=== PATIENT | female | born 1970 | race Two or more races ===

== ENCOUNTER 2022-10-16 00:44 | Inpatient (IN) | payer MEDICAID ==
[~2022-10-16] VITALS: Ht 152.4 cm; Wt 72.6 kg
[2022-10-16 00:54] VITALS: BP 176/61
[2022-10-16 01:21] LABS: Basophils # (auto) 0.1 10 ^3/uL (0-0.2); Eosinophils # (auto) 0.2 10 ^3/uL (0-0.8); Eosinophils % (auto) 2.9 % (0.0-7.0); Hematocrit 43.2 % (36.0-46.0); Hemoglobin 13.8 g/dL (12.2-16.2); Lymphocytes # (auto) 2.5 10 ^3/uL (0.4-5.4); Lymphocytes % (auto) 47.1 % (10.0-50.0); Mean Corpuscular Hgb Conc. 31.8 g/dL (32.0-36.0); Mean Corpuscular Volume 91.2 fL (80.0-100.0); Monocytes # (auto) 0.3 10 ^3/uL (0-1.3); Monocytes % (auto) 5.9 % (0.0-12.0); Neutrophils # (auto) 2.3 10 ^3/uL (1.6-8.6); Neutrophils % (auto) 43.1 % (37.0-80.0); Nucleated Red Blood Cells % 0.1 %; Red Blood Cells 4.74 10^6/uL (4.0-5.20); Red Cell Distribution Width 14.2 % (11.8-14.3); White Blood Cell 5.3 10^3/uL (4.4-10.8)
[2022-10-16 01:27] LABS: INR 0.92 (0.9-1.15); Partial Thromboplastin Time 24.8 sec (24.6-33.4)
[2022-10-16 01:31] LABS: Albumin 4.1 g/dL (3.4-5.0); BUN/Creatinine Ratio 30.6; Calcium 9.1 mg/dL (8.5-10.1); Magnesium 2.3 mg/dL (1.6-2.6); Potassium 3.6 mmol/L (3.5-5.1)
[2022-10-16 01:34] LABS: Bilirubin, Total 0.2 mg/dL (0.2-1.0); Total Protein 7.5 g/dL (6.4-8.2)
[2022-10-16] MEDS ORDERED: TEMAZEPAM 15 MG CAP PO PRN (05:00)
[2022-10-16] MEDS ORDERED: ACETAMINOPHEN 325 MG TAB PO PRN (05:00)
[2022-10-16] MEDS ORDERED: ONDANSETRON HCL 4 MG/2 ML VIAL IV PRN (05:00)
[2022-10-16] MEDS ORDERED: MORPHINE SULFATE INJ 2 MG/ml SYRG IV PRN (05:00)
[2022-10-16] MEDS ORDERED: NITROGLYCERIN 0.4 MG SL TAB SL PRN (05:00)
[2022-10-16] MEDS ORDERED: PANTOPRAZOLE 40 MG TAB PO SCH (10:00)
[2022-10-16] MEDS ORDERED: ENOXAPARIN SOD 40 MG/0.4 ML SYRINGE SC SCH (10:00)
[2022-10-16] MEDS ORDERED: LISINOPRIL 10 MG TAB PO SCH (10:00)
[2022-10-16] MEDS ORDERED: ASPirin 81 mg TAB PO SCH (10:00)
[2022-10-16] MEDS ORDERED: ATORVASTATIN 20 MG TAB PO SCH (22:00)
== END 2022-10-16 07:00 | disposition left against medical advice (07) | DRG 198 ==
LOC: ER 00:44 → EDBD 00:44 → TELE 04:58
PROVIDERS: ADMIT Nurse Practitioner; ATTEND Nurse Practitioner
DX: I24.9 Acute ischemic heart disease, unspecified (principal); E86.0 Dehydration; Z53.21 Procedure and treatment not carried out due to patient leaving prior to being seen by health care provider; I10 Essential (primary) hypertension; Z86.73 Personal history of transient ischemic attack (TIA), and cerebral infarction without residual deficits; R73.9 Hyperglycemia, unspecified; R07.9 Chest pain, unspecified
CPT/HCPCS: 36415; 70450; 71045; 80053; 83735; 83880; 84484; 85025; 85610; 85730; 93005; G0378

== ENCOUNTER 2025-09-07 19:50 | Emergency (ER) | payer MEDICAID ==
[~2025-09-07] VITALS: Ht 157.5 cm; Wt 68.0 kg
--- NOTE | 2025-09-07 20:00 | ECG ---
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
--- NOTE | 2025-09-07 21:07 | ECG ---
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
[2025-09-07 22:00] LABS: Hematocrit 41.7 % (36.0-46.0); Hemoglobin 13.9 g/dL (12.2-16.2); Mean Corpuscular Hemoglobin 30.2 pg (28.0-32.0); Mean Corpuscular Volume 90.5 fL (80.0-100.0); Nucleated Red Blood Cells % 0.1 %; Potassium 3.7 mmol/L (3.5-5.1); Sodium 143 mmol/L (136-145)
[2025-09-07 22:01] LABS: Anion Gap 12 (5-15); Carbon Dioxide 24 mmol/L (20-31)
[2025-09-07 22:02] LABS: Calcium 9.3 mg/dL (8.7-10.4)
[2025-09-07 22:06] LABS: Glucose 100 mg/dL (74-106)
[2025-09-07 22:07] LABS: BUN/Creatinine Ratio 10.2 (10.0-20.0)
[2025-09-07] MEDS: SODIUM CHLORIDE 0.9% 1,000 ML IV ONE (22:12)
[2025-09-07 22:15] LABS: Blood Urea Nitrogen 9 mg/dL (9-23); Chloride 107 mmol/L (98-107)
[2025-09-08] MEDS: ACETAMINOPHEN 500 MG TAB or CAP PO ONE (01:07)
--- NOTE | 2025-09-08 01:19 | DVH ---
EXAM: CT HEAD WITHOUT CONTRAST INDICATION: Dizziness, fall, head injury TECHNIQUE: CT of the head without intravenous contrast. Radiation Dose : 1. Head: CT Dose: CTDI volume is 57.24 mGy. Dose-length product is 1013.6 mGy*cm The dose indicators for CT are the volume Computed Tomography (CT) Dose Index (CTDIvol) and the Dose Length Product (DLP), and are measured in units of mGy and mGy-cm, respectively. These indicators are not patient dose, but values generated from the CT scanner acquisition factors. The report includes radiation exposure data for exposures received during this examination. COMPARISON: HEAD WITHOUT CONTRAST on DOS: 10/16/22 FINDINGS: There is no evidence of acute intracranial hemorrhage, extra-axial collection, mass effect, midline shift, herniation or hydrocephalus. The ventricles, sulci and cisterns are age appropriate. The lujan-white differentiation is intact. Patchy periventricular and subcortical white matter hypoattenuation is nonspecific but may be related to small vessel ischemic disease. The visualized paranasal sinuses and mastoid air cells are clear. The surrounding soft tissues and osseous structures are unremarkable. IMPRESSION: 1. No acute intracranial abnormality. Radiation optimization: All CT scans at this facility use at least one of these dose optimization techniques: automated exposure control mA and/or kV adjustment per patient size (includes targeted exams where dose is matched to clinical indication) or iterative reconstruction.
[2025-09-08 01:20] VITALS: TEMP 98.6
[2025-09-08 02:28] VITALS: BP 163/80; PULSE 98; RESP 15; O2SAT 98
== END 2025-09-08 02:37 | disposition left against medical advice (07) ==
LOC: ER 19:50 → EDBD 19:50 → ER 09-08 02:37
DX: R07.89 Other chest pain (principal); R55 Syncope and collapse; R51.9 Headache, unspecified; E11.9 Type 2 diabetes mellitus without complications; Z86.73 Personal history of transient ischemic attack (TIA), and cerebral infarction without residual deficits; Z79.899 Other long term (current) drug therapy
CPT/HCPCS: 36415; 70450; 80048; 82947; 83880; 84484; 85025; 93005; 96360; 99284; J7030

== ENCOUNTER 2025-09-08 13:46 | Emergency (ER) | payer MEDICAID ==
[~2025-09-08] VITALS: Ht 157.5 cm; Wt 74.1 kg
--- NOTE | 2025-09-08 14:28 | ECG ---
[facility] [place]25-09-08 Test Time: 13:57:42 Pat Name: ALVERTO EARL Department: ED Room: Gender: F Slabber: RUTH : 1970 Requested By: GERALDO LEDESMA Order Number: [id number] Reading MD: Travis Christopher Measurements Intervals [place] Rate: 78 P: 84 [place]: 144 QRS: 79 QRSD: 90 T: 45 QT: 395 QTc: 450 Interpretive Statements Sinus rhythm Electronically Signed On 09-10-2025 17:19:50 PST by Travis Christopher Please click the below link to view image of tracing.
[2025-09-08 14:41] LABS: Chloride 106 mmol/L (98-107); Potassium 3.7 mmol/L (3.5-5.1); Sodium 144 mmol/L (136-145)
[2025-09-08 14:42] LABS: Hematocrit 42.5 % (36.0-46.0); Hemoglobin 14.3 g/dL (12.2-16.2); Mean Corpuscular Hemoglobin 30.3 pg (28.0-32.0); Mean Corpuscular Volume 89.6 fL (80.0-100.0); Nucleated Red Blood Cells % 0.1 %
[2025-09-08 14:43] LABS: Anion Gap 10 (5-15); Calcium 9.6 mg/dL (8.7-10.4); Carbon Dioxide 28 mmol/L (20-31)
--- NOTE | 2025-09-08 14:46 | DVH ---
CHEST RADIOGRAPH INDICATION: trauma TECHNIQUE: Single frontal view of the chest was obtained COMPARISON: CHEST PORTABLE on DOS: 10/16/22, CXRP on DOS: 10/16/22 FINDINGS: Lines and Tubes: None Lungs: Clear Pleura: No effusion. No pneumothorax. Cardiomediastinal contours: Unremarkable Bones: Unremarkable IMPRESSION: No acute disease.
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
[2025-09-08 14:48] LABS: BUN/Creatinine Ratio 10.4 (10.0-20.0); Blood Urea Nitrogen 7 mg/dL (9-23); Glucose 90 mg/dL (74-106)
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
[2025-09-08 16:04] VITALS: BP 147/77; RESP 17; TEMP 98.1; O2SAT 97
[2025-09-08 16:06] VITALS: PULSE 77
== END 2025-09-08 16:24 | disposition home or self-care (01) ==
LOC: ER 13:46
DX: S90.02XA Contusion of left ankle, initial encounter (principal); E11.9 Type 2 diabetes mellitus without complications; I10 Essential (primary) hypertension; Z86.73 Personal history of transient ischemic attack (TIA), and cerebral infarction without residual deficits; Z79.899 Other long term (current) drug therapy; W19.XXXA Unspecified fall, initial encounter; Y93.89 Activity, other specified; Y92.89 Other specified places as the place of occurrence of the external cause; Y99.8 Other external cause status
CPT/HCPCS: 36415; 71045; 72100; 73600; 80048; 85025; 93005